=== PATIENT | male | born 1995 | race Caucasian/White ===

== ENCOUNTER 2019-05-10 01:52 | Observation (INO) ==
[2019-05-10 02:50] LABS: BE -20.1 mmoll (-2.0-2.0); BLOOD TYPE VENOUS; PCO2(98.6) 29 mmHg (40-60); PO2(98.6) 30 mmHg (30-55); SAMPLE BLOOD; SAO2 67.7 % (40.0-85.0)
[2019-05-10 02:53] LABS: pH(98.6) 7.08 (7.32-7.43)
[2019-05-10] MEDS ORDERED: NS 1,000 ML IV ONE (03:02)
[2019-05-10] MEDS ORDERED: D5 1/2 NS + KCL 40 MEQ 1,000 ML IV ONE (03:02)
--- NOTE | 2019-05-10 03:03 | PROVIDER DOCUMENTATION ---
HPI-General Adult - General Chief Complaint: High Blood Sugar Stated Complaint: DKA Time Seen by Provider: 05/10/19 02:05 Source: patient, family Allergies/Adverse Reactions: Patient Allergies Allergy/AdvReac Type Severity Reaction Status Date / Time No Known Allergies Allergy Verified 05/10/19 02:39 Home Medications: Home Medication List Medication Instructions Recorded Confirmed Last Taken Type Divalproex E.r. [Depakote ER] 5 tab PO QAM 05/10/19 05/10/19 Unknown History Insulin Aspart [Novolog Flexpen] See Protocol 05/10/19 Unknown History Insulin Degludec [Tresiba] 40 units SQ QHS 05/10/19 05/10/19 Unknown History - History of Present Illness -Gen Adult Nature of Presenting Problems: Presents to the ED with family who states that yesteday he started having some viral URI symptoms. They went to urgent care and they told him that he had an ear infection and a sinus infection and gave him a rocephin shot and DC him. Family states that he has been in DKA multiple time when he gets sick. Earlier today his fasting glucose was 230 and they have been trying to keep his sugars down with multiple doses of SQ insulin but then he started breathing more rapidly and they felt he might be in DKA again so they brought him in for evaluation. Review of Systems - Adult - REVIEW OF SYSTEMS - ADULT Constitutional: reports: see HPI Eyes: reports: no symptoms reported Ears, Nose, Mouth & Throat: reports: see HPI, sinus problem Cardiovascular: reports: no symptoms reported Respiratory: reports: see HPI, cough Gastrointestinal: reports: no symptoms reported Genitourinary: reports: no symptoms reported Musculoskeletal: reports: no symptoms reported Integumentary: reports: no symptoms reported Neurological: reports: no symptoms reported Psychiatric: reports: no symptoms reported Endocrine: reports: see HPI Hematologic/Lymphatic: reports: no symptoms reported Allergic/Immunologic: reports: no symptoms reported All Other Systems: Reviewed and Negative Past History - Adult - PAST MEDICAL HISTORY-ADULT Review of Records: reports: Old Records Reviewed, Nursing Assessment Review, M edications Reviewed, Social history reviewed & non-contributory. Major Childhood Illnesses: reports: denies history Endocrine/Immune: reports: Diabetes Diabetes Type: Type 1 Diabetes controlled by:: Insulin Dependent Physical Exam-General - PHYSICAL EXAM-ADULT Initial Vital Signs Reviewed: Yes - CONSTITUTIONAL General Appearance: alert, mild distress (uncomfortable appearing) - EYES Eyes: PERRL/EOMI - HEAD, EARS, NOSE, MOUTH & THROAT HENMT: normocephalic/atraumatic - NECK Neck: supple, normal inspection - RESPIRATORY Respiratory: chest non-tender, lungs clear, normal breath sounds, no respiratory distress, no accessory muscle use - CARDIOVASCULAR Cardiovascular: normal peripheral pulses, no murmur, tachycardia - GASTROINTESTINAL (ABDOMEN) Abdominal Exam: normal bowel sounds, non tender, soft - LYMPHATIC Lymphatic: no adenopathy - MUSCULOSKELETAL Back Exam: normal inspection Extremity: normal range of motion, normal inspection, pelvis stable - SKIN Integumentary: normal color, warm/dry - NEUROLOGIC Neurologic: grossly normal - PSYCHIATRIC Psych/Mental Status: normal mood/affect, oriented x 3 Progress - PLAN OF CARE/RESULTS Progress/Plan/Lab Results: Vital Signs - 8 hr 05/10/19 01:57 Temperature 97.7 F Pulse Rate 102 H Respiratory Rate 18 Blood Pressure 123/78 O2 Sat by Pulse Oximetry 99 Laboratory Results - last 24 hr 05/10/19 05/10/19 02:07 02:38 Specimen Type VENOUS VBG pH 7.08 L* VBG pCO2 29 L VBG pO2 30 VBG HCO3 8.0 L VBG O2 Saturation 67.7 VBG Base Excess -20.1 L VBG Lactate 1.60 POC Glucose 168 H Orders Category Date Time Status ACETONE SERUM [CHEM] Stat Lab 05/10/19 02:26 Received BASIC METABOLIC PANEL [CHEM] Stat Lab 05/10/19 02:26 Received CBC WITH ELECTRONIC DIFF [HEME] Stat Lab 05/10/19 02:26 Results URINALYSIS W/POSS RFLX CULT [URINALYSIS] Stat Lab 05/10/19 02:17 Uncollected VENOUS BLOOD GAS [RESP] Routine Lab 05/10/19 02:38 Completed 0.9% Sodium Chloride Inj [Ns] 100 ml Med 05/10/19 03:15 Ordered Insulin Human Regular [Humulin R] 100 unit IV 5 mls/hr D5 1/2 Ns + KCl 40 Meq 1,000 ml Med 05/10/19 03:02 Ordered IV 100 mls/hr Ns 1000 ml IV Bolus X1 Med 05/10/19 03:02 Ordered 0.9% Sodium Chloride Inj [Ns] 1,000 ml IV 999 mls/hr Patient in DKA despite glucose being only 168. Will need to start insulin drip but will also need D51/2 for [address] Spoke to Dr Diggs, immigration inspector for hosp who accepted patient for admission. Further orders to be placed by their team. Result Diagrams: 05/11/19 07:00 05/12/19 04:20 - CONSULTS/PCP/HOSPITALIST Notification #1 *Consult/PCP/Hospitalist*: Dr Diggs Time Discussed: 03:38 Consult Disposition: Admit Departure - Departure Date of Disposition Decision: 05/10/19 Time of Disposition Decision: 03:37 DIAGNOSIS: DKA (diabetic ketoacidoses) Qualifiers: Diabetes mellitus type: type 1 Diabetes mellitus complication detail: without coma Qualified Code(s): E10.10 - Type 1 diabetes mellitus with ketoacidosis without coma Disposition: ADMITTED INPATIENT 09 Certified Medical Emergency: Emergent Condition: Stable - Critical Care Note This patient required my direct & personal management of CC.: Yes Total Time (mins): 35 Critical Care Statement: This patient required my direct personal management to treat or rule out processes, the absence of which, could potentiallly result in sudden, clinically significant life or limb threatening deterioration. Attestation - Physician/ MAGNO Attestation Patient care was provided by Advanced Practice Provider:: No The physician spent face to face time with patient:: Yes Advanced Practice Provider documentation review:: Supervising physician onsite and consulted in the evaluation and care of this patient. The physician did have a face to face encounter with the patient.
[2019-05-10 03:04] LABS: ACETONE SERUM MODERATE (NEGATIVE)
[2019-05-10 03:06] LABS: ESTIMATED GFR > 60
[2019-05-10 03:10] LABS: AGAP 24; BASO% 0.7 % (0.0-0.8); BUN 10 mg/dL (8-22); CALCIUM 9.4 mg/dL (8.8-10.2); CHLORIDE 102 mmol/L (98-107); COSMO 269; CREATININE 1.1 mg/dL (0.7-1.2); GLUCOSE 124 mg/dL (70-104); HEMATOCRIT 51.5 % (42.0-52.0); HEMOGLOBIN 17.5 g/dL (14.0-18.0); IMM GRAN# 0.06 X1000 (0.0-0.04); IMM GRAN% 0.4 % (0.0-0.5); LYMPH# 1.76 X1000 (1.2-3.4); LYMPH% 11.7 % (20.5-51.1); MCH 31.6 PG (27-31); MONO# 1.59 X1000 (0.11-0.59); MONO% 10.6 % (1.7-9.3); MPV 10.2 FL (7.4-10.4); NEUT# 11.54 X1000 (1.4-6.5); NEUT% 76.6 % (42.2-75.2); PLT 299 X1000 (130-400); POTASSIUM 4.8 mmol/L (3.5-5.1); RBC 5.54 XMIL (4.7-6.1); RDW 13.5 % (11.5-14.5); SODIUM 134 mmol/L (136-145); TCO2 8 mmol/L (25-35); WBC 15.05 X1000 (4.8-10.8)
[2019-05-10] MEDS ORDERED: HUMULIN R 100 UNIT in NS 100 ML IV SCH ×2 (03:15→04:04)
[2019-05-10 03:42] LABS: MAGNESIUM 2.1 mg/dL (1.5-2.7); PHOSPHORUS 3.2 mg/dL (2.7-4.5)
[2019-05-10] MEDS ORDERED: PHENERGAN IV PRN (04:04)
[2019-05-10] MEDS ORDERED: D5 NS 1,000 ML IV PRN (04:04)
[2019-05-10] MEDS ORDERED: ZOFRAN IV PRN (04:04)
[2019-05-10] MEDS ORDERED: NS 1,000 ML IV SCH (04:04)
[2019-05-10 04:13] LABS: URINE SOURCE CLEAN CATCH
[2019-05-10 04:15] LABS: BILIRUBIN URINE NEGATIVE (NEGATIVE); BLOOD URINE SMALL (NEGATIVE); COLOR YELLOW; GLUCOSE URINE 500 mg/dL (NEGATIVE); KETONE URINE >150 mg/dL (NEGATIVE); LEUKOCYTES URINE NEGATIVE (NEGATIVE); NITRITE URINE NEGATIVE (NEGATIVE); PH URINE 5.5; PROTEIN URINE 100 mg/dL (NEGATIVE); SP GRAVITY URINE 1.016; TURBIDITY URINE CLEAR (CLEAR); UROBILINOGEN URINE NORMAL (NORMAL)
[2019-05-10 04:16] LABS: UR EPITHELIAL CELLS <10 /HPF (<10); URINE BACTERIA NEGATIVE /HPF; URINE RBC <10 /HPF (<10); URINE WBC <10 /HPF (<10)
[2019-05-10] MEDS ORDERED: POTASSIUM CHLORIDE 40 MEQ/SWI 40 MEQ/100 ML IVPB IV PRN (04:53)
[2019-05-10] MEDS ORDERED: POTASSIUM CHLORIDE 20 MEQ/SWI 20 MEQ/100 ML IVPB IV PRN (04:53)
[2019-05-10] MEDS ORDERED: HUMULIN R IV ONE (04:53)
[2019-05-10] MEDS ORDERED: D50W SYRINGE IV PRN (04:53)
[2019-05-10] MEDS ORDERED: SODIUM CHLORIDE 0.9% INJ PRN (04:53)
[2019-05-10] MEDS ORDERED: SODIUM PHOSPHATE 30 MMOL in D5W 250 ML IV PRN (04:53)
[2019-05-10 05:17] LABS: HEMOGLOBIN A1C 9.9 % (4.8-6.0)
[2019-05-10] MEDS: NS 1,000 ML IV SCH ×2 (05:31→06:32)
--- NOTE | 2019-05-10 05:55 | Diag Imaging Result Doc PS360 ---
EXAM: CHEST-2 VIEWS HISTORY: cough,leukocytosis TECHNIQUE: Two views COMPARISON: None. FINDINGS: The lungs are well expanded. The heart is not enlarged. The vessels are not distended. There are no infiltrates. No pleural effusions. IMPRESSION: No pneumonia Electronically signed by Rao Hewitt 05/10/2019 5:53 AM
[2019-05-10] MEDS: SODIUM CHLORIDE 0.9% INJ SCH (06:32)
[2019-05-10] MEDS: PROTONIX IV SCH (06:32)
[2019-05-10] MEDS ORDERED: POTASSIUM CHLORIDE 20% LIQUID PO PRN (07:00)
--- NOTE | 2019-05-10 07:01 | HISTORY AND PHYSICAL ---
PRIMARY CARE PROVIDER: ELIS Dixon CHIEF COMPLAINT: Nausea, vomiting, not feeling well. HISTORY OF PRESENTING ILLNESS: A 23-year-old male with a history of diabetes mellitus type 1 and epilepsy, who presented to the emergency department with 4 days' history of having cold-like symptoms and recently started having nausea and vomiting. The patient states that he was not able to keep anything down, did not feel well. The patient was brought to the emergency department where he was evaluated, and his laboratories and symptoms were consistent with DKA. He was started on insulin drip, and he will need admission for further management. At the time of my examination, patient denied any headache, fever, chills, chest pain, hemoptysis, or any weight changes, but states that he is still nauseated. PAST MEDICAL HISTORY: Include diabetes mellitus type 1, epilepsy. PAST SURGICAL HISTORY: Appendectomy, cholecystectomy. ALLERGIES: No known drug allergies. CURRENT MEDICATIONS: Include NovoLog FlexPen on a sliding scale, Depakote ER 500 mg 5 times a day, Tresiba. SOCIAL HISTORY: He is smoking for the past 4 years. Admits to social alcohol use. Denies any illicit drug use. FAMILY HISTORY: No history of coronary disease. REVIEW OF SYSTEMS: A 14-point review of systems is as in HPI. Other systems negative. PHYSICAL EXAMINATION: GENERAL: Cooperative, friendly male. He is resting more comfortably now. VITAL SIGNS: Temperature 97.7 degrees, pulse 102, respiration 18, blood pressure 123/78. HEENT: Atraumatic, normocephalic. Extraocular movements intact. PERRLA. NECK: No masses. CHEST: Clear to auscultation. CARDIOVASCULAR: Regular rate and rhythm. S1 and S2. ABDOMEN: Soft. Positive bowel sounds. EXTREMITIES: No edema. NEUROLOGIC: She S awake, alert, oriented x3. GENITOURINARY: No bladder distention. SKIN: Has poor turgor. LABORATORIES AND STUDIES: WBCs 15.05, hemoglobin 17.5, hematocrit 51.5, platelets 299,000. Blood gases shows pH of 7.08, pCO2 is 29. Chemistry shows sodium 134, potassium 4.8, chloride 102, CO2 is 8, BUN is 10, creatinine is 1.1, glucose is 124, anion gap is 24. Toxicology shows acetone. ASSESSMENT: This is a 23-year-old male with a history of diabetes mellitus type 1 and epilepsy who had presented to the emergency department with 4 days' history of nausea, vomiting, and cold- like symptoms. He was evaluated in the emergency department. He was found to be in diabetic ketoacidosis, and he will need admission for further management. 1. diabetic ketoacidosis. 2. Seizure disorder. 3. Upper respiratory infection. PLAN: 1. We will admit patient to ICU. 2. Put patient on DKA insulin drip per DKA protocol. 3. Continue with generous IV fluids. 4. Put patient on seizure precautions and restart his home medications. 5. We will use symptomatic treatment for his URI. 6. We will continue to follow and reassess, make further recommendations based on the patient's clinical course. cc: Shane Diggs MD MTDD
[2019-05-10 07:54] LABS: AGAP 19; BUN 8 mg/dL (8-22); CHLORIDE 108 mmol/L (98-107); COSMO 269; CREATININE 0.9 mg/dL (0.7-1.2); ESTIMATED GFR > 60; GLUCOSE 79 mg/dL (70-104); MAGNESIUM 1.7 mg/dL (1.5-2.7); POTASSIUM 3.6 mmol/L (3.5-5.1); SODIUM 136 mmol/L (136-145); TCO2 9 mmol/L (25-35)
[2019-05-10 08:01] LABS: ALLEN TEST YES; BE -15.8 mmoll (-3.0-3.0); BLOOD TYPE ARTERIAL; METHB 1.1 % (0.0-1.5); O2HB 96.7 % (95.0-99.0); PCO2(98.6) 22 mmHg (35-45); PO2(98.6) 124 mmHg (60-100); SAMPLE BLOOD; SAO2 99.3 % (95.0-100.0); THB 15.3 g/dL (11.5-17.4); pH(98.6) 7.24 (7.35-7.45)
[2019-05-10 08:02] LABS: HCO3-(ACT) 12.6 mmoll (20.0-26.0); MODALITY ROOM AIR
[2019-05-10] MEDS: POTASSIUM CHLORIDE 10% LIQUID PO PRN ×4 (08:58→21:10)
[2019-05-10] MEDS: DEPAKOTE ER PO SCH (08:59)
[2019-05-10] MEDS: MAGNESIUM SULFATE 2 GM/S.W.I. 2 GM/50 ML IVPB IV PRN (09:27)
--- NOTE | 2019-05-10 09:53 | PROGRESS NOTE ---
DATE: 05/10/2019 INTERVAL HISTORY: Mr. Viramontes was admitted to ICU for diabetic ketoacidosis. He has been on insulin drip, and he has also been on D-5 containing intravenous fluids. He has had episodes of hypoglycemia. I evaluated him in the ICU. The patient's family is at bedside. Apparently, the patient had upper respiratory tract infection related symptoms 4 days ago. Though he did not miss any of the insulin, his oral intake has been extremely poor since last 48 hours. We discussed about possible pathophysiology of DKA, upper respiratory tract infection likely being a trigger. We also discussed about the fact that he has been on insulin kept his blood glucose on the lower side. OBJECTIVE: Vital Signs: Currently, temperature of 98.4 degrees, pulse 92, respiratory rate 17, blood pressure 115/71, saturating 100% room air. General: On physical examination, not in acute distress. HEENT: Oral cavity is moist. Mild pharyngeal congestion. Lungs: Air entry bilaterally equal. No wheeze or crackles. Cardiac: S1 and S2 normal. No murmur or gallop. Abdomen: Soft, nontender. Extremities: No lower extremity edema. Neurologic: He is alert and oriented x3. LABS: Suggestive of WBC of 15,000, hemoglobin 17.5, platelets 299,000. He also has elevated anion gap, low bicarbonate, and acidosis with intermittent hyperglycemia and hypoglycemia, as well as ketosis. Microbiology: No positive data. IMAGING: Chest x-ray did not have any evidence of pneumonia. ASSESSMENT AND PLAN: 1. Euglycemic diabetic ketoacidosis. Trigger is likely his upper respiratory tract infection. The fact that he has been regularly taking his long-acting as well as multiple short-acting insulin doses prior to arrival likely contributed to his euglycemia rather than hyperglycemia. I will treat him according to diabetic ketoacidosis protocol with insulin drip and D-5 containing intravenous fluids, and we will check basic metabolic panels and arterial blood gases frequently. 2. Tobacco abuse. He will be counseled about tobacco cessation. 3. History of epilepsy. I will start him on ice chips, sips of water, and his home Depakote. 4. Disposition: I will continue to monitor the patient inside the hospital. Plan of care discussed with him. His questions have been answered. cc: Chan Diego MD
[2019-05-10 10:51] LABS: ACETAMINOPHEN < 1.2 ug/mL (10-30); SALICYLATES < 3.00 mg/dL (3-10)
[2019-05-10 11:46] LABS: AGAP 18; BUN 7 mg/dL (8-22); CALCIUM 8.3 mg/dL (8.8-10.2); CHLORIDE 111 mmol/L (98-107); COSMO 276; CREATININE 0.9 mg/dL (0.7-1.2); ESTIMATED GFR > 60; GLUCOSE 116 mg/dL (70-104); PHOSPHORUS 2.5 mg/dL (2.7-4.5); POTASSIUM 4.7 mmol/L (3.5-5.1); SODIUM 139 mmol/L (136-145); TCO2 10 mmol/L (25-35)
[2019-05-10 12:16] LABS: UR AMPHETAMINES QUAL NONE DETECTED (NONE DETECT); UR BARBITUATES QUAL NONE DETECTED (NONE DETECT); UR BENZODIAZEPIN QUAL NONE DETECTED (NONE DETECT); UR CANNABINOIDS QUAL NONE DETECTED (NONE DETECT); UR COCAINE QUAL NONE DETECTED (NONE DETECT); UR METHADONE QUAL NONE DETECTED (NONE DETECT); UR OPIATES QUAL NONE DETECTED (NONE DETECT); UR OXYCODONE QUAL NONE DETECTED (NONE DETECT); UR PCP QUAL NONE DETECTED (NONE DETECT)
[2019-05-10] MEDS: D5 NS 1,000 ML IV PRN ×2 (12:18→18:19)
[2019-05-10 13:37] LABS: ALLEN TEST YES; BE -11.6 mmoll (-3.0-3.0); BLOOD TYPE ARTERIAL; HCO3-(ACT) 15.8 mmoll (20.0-26.0); METHB 1.1 % (0.0-1.5); O2HB 96.3 % (95.0-99.0); PCO2(98.6) 29 mmHg (35-45); PO2(98.6) 101 mmHg (60-100); SAMPLE BLOOD; SAO2 99.2 % (95.0-100.0); THB 14.7 g/dL (11.5-17.4); pH(98.6) 7.28 (7.35-7.45)
[2019-05-10 13:39] LABS: MODALITY ROOM AIR
[2019-05-10 15:01] LABS: ESTIMATED GFR > 60
[2019-05-10 15:07] LABS: AGAP 13; BUN 5 mg/dL (8-22); CALCIUM 8.1 mg/dL (8.8-10.2); CHLORIDE 111 mmol/L (98-107); COSMO 276; CREATININE 0.8 mg/dL (0.7-1.2); GLUCOSE 150 mg/dL (70-104); PHOSPHORUS 2.2 mg/dL (2.7-4.5); POTASSIUM 4.1 mmol/L (3.5-5.1); SODIUM 138 mmol/L (136-145); TCO2 14 mmol/L (25-35)
[2019-05-10] MEDS: TYLENOL PO PRN (17:07)
[2019-05-10 18:58] LABS: AGAP 9; BUN 3 mg/dL (8-22); CALCIUM 8.1 mg/dL (8.8-10.2); CHLORIDE 111 mmol/L (98-107); COSMO 274; CREATININE 0.7 mg/dL (0.7-1.2); ESTIMATED GFR > 60; GLUCOSE 135 mg/dL (70-104); MAGNESIUM 1.8 mg/dL (1.5-2.7); PHOSPHORUS 1.6 mg/dL (2.7-4.5); POTASSIUM 3.7 mmol/L (3.5-5.1); SODIUM 138 mmol/L (136-145); TCO2 18 mmol/L (25-35)
[2019-05-10 22:57] LABS: AGAP 11; BUN 3 mg/dL (8-22); CALCIUM 8.1 mg/dL (8.8-10.2); CHLORIDE 111 mmol/L (98-107); COSMO 277; CREATININE 0.7 mg/dL (0.7-1.2); ESTIMATED GFR > 60; GLUCOSE 114 mg/dL (70-104); MAGNESIUM 1.7 mg/dL (1.5-2.7); PHOSPHORUS 1.5 mg/dL (2.7-4.5); POTASSIUM 3.6 mmol/L (3.5-5.1); SODIUM 140 mmol/L (136-145); TCO2 18 mmol/L (25-35)
[2019-05-11] MEDS: POTASSIUM CHLORIDE 10% LIQUID PO PRN ×2 (00:16→12:23)
[2019-05-11] MEDS: D5 NS 1,000 ML IV PRN (00:35)
[2019-05-11] MEDS: MAGNESIUM SULFATE 2 GM/S.W.I. 2 GM/50 ML IVPB IV PRN (00:35)
[2019-05-11 03:51] LABS: AGAP 10; BUN 2 mg/dL (8-22); CALCIUM 7.6 mg/dL (8.8-10.2); CHLORIDE 112 mmol/L (98-107); COSMO 279; CREATININE 0.5 mg/dL (0.7-1.2); ESTIMATED GFR > 60; GLUCOSE 125 mg/dL (70-104); MAGNESIUM 2.2 mg/dL (1.5-2.7); PHOSPHORUS 1.8 mg/dL (2.7-4.5); POTASSIUM 3.3 mmol/L (3.5-5.1); SODIUM 141 mmol/L (136-145); TCO2 19 mmol/L (25-35)
[2019-05-11] MEDS: SODIUM CHLORIDE 0.9% INJ SCH (04:16)
[2019-05-11] MEDS: PROTONIX IV SCH (04:16)
[2019-05-11] MEDS: TYLENOL PO PRN ×3 (05:06→21:33)
[2019-05-11 05:23] LABS: ALLEN TEST YES; BE -5.2 mmoll (-3.0-3.0); BLOOD TYPE ARTERIAL; HCO3-(ACT) 20.8 mmoll (20.0-26.0); METHB 1.1 % (0.0-1.5); O2(CT) 20.3 mL/dL (15.0-23.0); O2HB 96.4 % (95.0-99.0); PCO2(98.6) 37 mmHg (35-45); PO2(98.6) 115 mmHg (60-100); SAMPLE BLOOD; THB 14.9 g/dL (11.5-17.4); pH(98.6) 7.34 (7.35-7.45)
[2019-05-11 05:25] LABS: MODALITY ROOM AIR
[2019-05-11 07:44] LABS: AGAP 10; BUN 2 mg/dL (8-22); CALCIUM 7.5 mg/dL (8.8-10.2); CHLORIDE 112 mmol/L (98-107); COSMO 281; CREATININE 0.6 mg/dL (0.7-1.2); ESTIMATED GFR > 60; GLUCOSE 134 mg/dL (70-104); MAGNESIUM 1.9 mg/dL (1.5-2.7); PHOSPHORUS 1.7 mg/dL (2.7-4.5); POTASSIUM 3.9 mmol/L (3.5-5.1); SODIUM 142 mmol/L (136-145); TCO2 20 mmol/L (25-35)
[2019-05-11] MEDS: HUMALOG SUBQ SCH ×5 (08:09→23:50)
[2019-05-11 08:38] LABS: BASO# 0.06 X1000 (0.0-0.2); BASO% 0.9 % (0.0-0.8); EOS# 0.12 X1000 (0.0-0.7); EOS% 1.9 % (0.0-10.0); HEMATOCRIT 40.2 % (42.0-52.0); IMM GRAN# 0.03 X1000 (0.0-0.04); IMM GRAN% 0.5 % (0.0-0.5); LYMPH# 1.83 X1000 (1.2-3.4); LYMPH% 28.2 % (20.5-51.1); MCH 32.2 PG (27-31); MCHC 34.8 g/dL (33-37); MCV 92.4 FL (81-99); MONO# 0.94 X1000 (0.11-0.59); MONO% 14.5 % (1.7-9.3); MPV 10.8 FL (7.4-10.4); PLT 142 X1000 (130-400); RBC 4.35 XMIL (4.7-6.1); RDW 13.9 % (11.5-14.5); WBC 6.48 X1000 (4.8-10.8)
[2019-05-11] MEDS: LANTUS INSULIN SUBQ SCH (09:05)
[2019-05-11] MEDS: DEPAKOTE ER PO SCH (09:05)
--- NOTE | 2019-05-11 09:05 | PROGRESS NOTE ---
DATE: 05/11/2019 INTERVAL HISTORY: No acute events overnight. Mr. Viramontes's anion gap had closed. His bicarbonate has been increasing. His acidosis has been resolving. SUBJECTIVE: Mr. Viramontes is hungry and wanted to eat food. He denies any chest pain, shortness of breath, nausea or vomiting. REVIEW OF SYSTEMS: Negative for any nausea, vomiting or abdominal pain. Negative for any headache. Negative for any sinus congestion. Positive for ear pain, for which he takes acetaminophen. VITALS: Temperature of 98.4 degrees, pulse 77, respiratory rate 15, blood pressure 96/68 saturating 99% on room air. PHYSICAL EXAMINATION: General: Not in acute distress. Oral cavity: Moist. Lungs: Air entry bilaterally equal. No wheeze, rhonchi, or rales. Cardiovascular: S1, S2 normal. No murmur, rub or gallop. Abdomen: Soft, nontender. Extremities: No lower extremity edema. Neurologic: He is alert and oriented x3. LABS: Suggestive of WBC of 6000, hemoglobin 14, platelet 142. A pH of 7.34, PO2 of 115. His carbon dioxide is 20, BUN is 2, creatinine 0.6. Blood sugar 134, anion gap is 10. MICROBIOLOGY: No positive data. X-RAYS: No new imaging. ASSESSMENT AND PLAN: 1. Euglycemic diabetic ketoacidosis in the setting of upper respiratory tract infection. The patient has been taking his insulin regularly, which probably prevented hyperglycemia. Currently, his diabetic ketoacidosis has resolved. I will stop insulin drip and start long- acting insulin with subcutaneous regimen and diabetic diet according to diabetic ketoacidosis protocol. 2. Tobacco abuse he was counseled about tobacco cessation. 3. History of epilepsy. Continue home Depakote. DISPOSITION: Monitor patient in ICU for a few hours as we monitor his BMP. Based on that, consider transfer to medical floor later in the afternoon. Plan of care discussed with Mr. Viramontes. All of his questions have been satisfactorily answered. cc: Chan Diego MD
[2019-05-11 09:14] LABS: LYMPHS 19 % (21-51); MONO 6 % (1-9); SEGS 73 % (42-75)
[2019-05-11 12:03] LABS: AGAP 8; BUN 2 mg/dL (8-22); CHLORIDE 111 mmol/L (98-107); COSMO 274; CREATININE 0.6 mg/dL (0.7-1.2); ESTIMATED GFR > 60; GLUCOSE 70 mg/dL (70-104); MAGNESIUM 1.8 mg/dL (1.5-2.7); PHOSPHORUS 1.7 mg/dL (2.7-4.5); POTASSIUM 3.6 mmol/L (3.5-5.1); SODIUM 140 mmol/L (136-145); TCO2 21 mmol/L (25-35)
[2019-05-11 15:15] LABS: AGAP 10; BUN 3 mg/dL (8-22); CALCIUM 8.1 mg/dL (8.8-10.2); CHLORIDE 109 mmol/L (98-107); COSMO 281; CREATININE 0.6 mg/dL (0.7-1.2); ESTIMATED GFR > 60; GLUCOSE 123 mg/dL (70-104); MAGNESIUM 1.8 mg/dL (1.5-2.7); PHOSPHORUS 1.7 mg/dL (2.7-4.5); POTASSIUM 3.7 mmol/L (3.5-5.1); SODIUM 142 mmol/L (136-145); TCO2 23 mmol/L (25-35)
[2019-05-11 19:51] LABS: AGAP 10; BUN 4 mg/dL (8-22); CHLORIDE 108 mmol/L (98-107); COSMO 285; CREATININE 0.7 mg/dL (0.7-1.2); ESTIMATED GFR > 60; GLUCOSE 225 mg/dL (70-104); POTASSIUM 3.6 mmol/L (3.5-5.1); SODIUM 141 mmol/L (136-145); TCO2 23 mmol/L (25-35)
[2019-05-12] MEDS: HUMALOG SUBQ SCH ×2 (04:17→07:45)
[2019-05-12 06:48] LABS: AGAP 9; BUN 7 mg/dL (8-22); CALCIUM 8.3 mg/dL (8.8-10.2); CHLORIDE 107 mmol/L (98-107); COSMO 284; CREATININE 0.5 mg/dL (0.7-1.2); ESTIMATED GFR > 60; GLUCOSE 186 mg/dL (70-104); POTASSIUM 3.2 mmol/L (3.5-5.1); SODIUM 141 mmol/L (136-145); TCO2 25 mmol/L (25-35)
[2019-05-12] MEDS ORDERED: KLOR-CON PO ONE (08:20)
[2019-05-12] MEDS: DEPAKOTE ER PO SCH (08:58)
[2019-05-12] MEDS: LANTUS INSULIN SUBQ SCH (08:59)
[2019-05-12 09:12] VITALS: BP 117/79
--- NOTE | 2019-05-12 11:27 | DISCHARGE SUMMARY ---
ADMISSION DATE: 05/10/2019 DISCHARGE DATE: 05/12/2019 DISCHARGE DISPOSITION: Home. DISCHARGE CONDITION: Hemodynamically stable. Mr. Viramontes's blood glucose has been acceptable range on basal bolus regimen. He is tolerating diet without any nausea, vomiting. He is counseled about DKA and was advised to have follow up with his regular physician. DISCHARGE DIAGNOSES: 1. Euglycemic diabetic ketoacidosis. 2. Recent upper respiratory tract infection, likely viral rhinosinusitis. 3. History of seizure disorder. 4. Hypokalemia. OTHER DIAGNOSES: 1. History of insulin-dependent type 1 diabetes mellitus. 2. Active tobacco abuse. The patient was counseled about smoking cessation. DISCHARGE MEDICATIONS: 1. Insulin degludec 40 units at nighttime. 2. Depakote extended release 5 tablets in the morning time. 3. Insulin aspart with meals sliding scale. VITALS: At the time of discharge temperature 97.8 degrees, pulse 93, respiratory rate 15, blood pressure 117/79, saturating 99% on room air. PHYSICAL EXAMINATION: Mr. Viramontes does not appear in any acute distress. HEENT: Oral cavity is moist. Lungs: Air entry bilaterally equal. No wheeze, rhonchi, crackles. Cardiovascular: S1, S2 normal. No murmur or gallop. Abdomen: Soft, nontender. Extremity: No lower extremity edema. CLINICAL UNIT EDUCATOR: He was alert oriented x3. LABS: At the time of discharge: WBC 6.4, hemoglobin 14, platelet 142,000, potassium of 3.2 and he is getting 40 mEq of potassium. BUN 7, creatinine 0.8, blood glucose 186. His acetone level was moderate. MICROBIOLOGY: At time of discharge: No positive throat culture group. A rapid streptococcal antigen was negative. IMAGING DURING HOSPITAL ADMISSION: Chest x-ray on presentation did not have any cardiopulmonary process. HOSPITAL COURSE SUMMARY: Mr. Viramontes is 23 years old man with past medical history of type 1 diabetes mellitus, who came into the emergency room with chief complaints of nausea, vomiting, and not feeling well, which has been ongoing for about 4 days. Apparently, patient had upper respiratory tract infection related to symptoms including sinus congestion, rhinorrhea, and had seen a provider at Urgent Care where he had received a dose of antibiotic. However, he continued to feel worse and he started having nausea and vomiting. He presents to the emergency room. In the emergency room, he was found to have temperature of 97.7 degrees, pulse of 102, respiratory rate of 18 and blood pressure of 123/78. He was saturating 99% on room air. Initial lab evaluation had WBC of 15,000 which was thought to be related to stress response and hemoconcentration. His ABG had a pH of 7.24. He had anion gap of 24 and bicarbonate of 8. Though his blood glucose was only minimally elevated to around 124 he was diagnosed with DKA based on presence of acetone and elevated anion gap and acidosis. The patient had taken his long-acting insulin as well as multiple doses of short-acting insulin before coming to the hospital, which probably had contributed to his euglycemia. He was started on insulin drip and intravenous fluid resuscitation with electrolyte repletion protocol according to diabetic ketoacidosis protocol and in the next 24 hours his condition improved. His anion gap closed, so his insulin regimen were changed to basal and bolus which he has been tolerating well. At the time of discharge, he is tolerating his diet well it was decided to discharge him on his home insulin regimen. TIME SPENT: 25 minutes were spent in discharging this patient. The patient was given written counseling for tobacco cessation. All of his questions were answered. cc: Chan Diego MD
== END 2019-05-12 09:18 | disposition home or self-care (01) ==
LOC: EDBD → ED 01:52 → INTOOBSV 01:53 → SUATTDRO 01:53 → ICU 03:55
PROVIDERS: ATTEND Internal Medicine